=== PATIENT | male | born 1960 | race Caucasian/White ===

== ENCOUNTER 2018-05-06 15:46 | Emergency (ER) | payer BC ==
--- NOTE | 2018-05-06 16:57 | RAD ---
LUMBAR SPINE 3 VIEWS: Date 05/06/18 HISTORY: Back pain, starting last night while roping on the back of a horse. FINDINGS: Five lumbar-type vertebral bodies. Vertebral body height is maintained. No fracture. Disc space heigh ts are preserved. No spondylolisthesis or spondylolysis. IMPRESSION: Unremarkable 3 views lumbar spine. POS: [facility]
[2018-05-06] MEDS ORDERED: Bupivacaine 0.5% 10 ML VIAL ONE (19:10)
[2018-05-06] MEDS ORDERED: Ketorolac Tromethamine 30 MG/ML VIAL ONE (19:11)
[2018-05-06] MEDS ORDERED: Diazepam 5 MG TAB ONE (19:16)
== END 2018-05-06 19:40 | disposition home or self-care (01) ==
LOC: ERS 15:46
DX: M54.5 Low back pain (principal); I25.10 Atherosclerotic heart disease of native coronary artery without angina pectoris; E78.5 Hyperlipidemia, unspecified; I10 Essential (primary) hypertension; Z79.899 Other long term (current) drug therapy
CPT/HCPCS: 20552; 72100; 96372; J1885; J3490

== ENCOUNTER 2018-06-07 06:55 | Day surgery (SDC) | payer BC ==
[2018-06-04 11:09] VITALS: BMI 27.2
[2018-06-07 09:22] VITALS: BP 108/78; TEMP 96.9
--- NOTE | 2018-06-07 10:20 | CT ---
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 FINDINGS: Lumbar spine vertebral body heights and alignment are maintained. Disk space heights are preserved. L5-S1: There is no significant central canal or neural foraminal stenosis. L4-5: There is a broad-based disk bulge with a superimposed right subarticular protrusion. This imp inges the traversing right L4 nerve root and produces moderate to severe right subarticular zone and medial right foraminal stenosis. There is moderate central canal stenosis. Mild narrowing of the le ft neural foramen is present. L3-4: Broad-based disk bulge results in mild narrowing of the central canal. No high-grade foramina l stenosis. At L1-2 and L2-3 levels, there is no significant compromise of central canal or neural foraminal narr owing. Conus medullaris is normal in morphology terminating at the T12-L1 level. There is incidental note of cystic prominence in the left renal hilum which may relate to parapelvic cyst formation, incompletely assessed. Punctate calcification, nonobstructive, is seen within the ri ght renal collecting system. There is multilevel mild bilateral degenerative facet hypertrophy/osteophytosis. IMPRESSION: Disk bulge and right subarticular disk protrusion at L4-5, with associated impingement of the right L 5 nerve root, prominent right subarticular and medial right foraminal zone stenosis and moderate cent ral canal compromise. POS: [facility]
[2018-06-07] MEDS ORDERED: Iopamidol-M 300 61% 15 ML VIAL ONE (11:08)
--- NOTE | 2018-06-07 11:15 | CT ---
POST MYELOGRAM CERVICAL SPINE CT: HISTORY: Cervical radiculopathy. COMPARISON: 07/05/2015. FINDINGS: There is straightening of normal cervical lordosis. There is an anterior fusion plate with transvert ebral body screw at C5 and C6. No perihardware lucency. There is a prosthesis at the C5-C6 disk spa ce. There is preservation of vertebral body height. No fracture. There is 1.7 mm of anterolisthesi s of C2 upon C3, 2.2 mm anterolisthesis of C3 upon C4. Lateral masses of C1 and C2 articulate appropriately. Appropriate articulation of facets. Intact od ontoid process. Visualized soft tissue neck structures are unremarkable. C2-C3: No significant central canal stenosis or neural foraminal narrowing. C3-C4: Broad-based disk-osteophyte complex. Broad-based disk bulge. No significant central canal s tenosis. Mild right foraminal narrowing due to degenerative change of the uncovertebral joint. The left neural foramen is patent. C4-C5: There is a central disk bulge that deforms the thecal sac. There is mild central canal steno sis. Neural foramina are patent. C5-C6: There is a prosthesis. There is a small left paracentral osteophyte that does not cause any significant central canal stenosis. Neural foramina are patent bilaterally. C6-C7: No significant central canal stenosis or foraminal narrowing. C7-T1: No significant central canal stenosis or foraminal narrowing. IMPRESSION: 1. Interval fusion changes at C5-C6. There is no significant central canal stenosis or foraminal na rrowing at this level. 2. There is a central disk bulge at C4-C5. When compared to the previous examination, there is incr easing disk bulge. There is mild central canal stenosis. POS: [facility]
== END 2018-06-07 10:00 | disposition home or self-care (01) ==
LOC: RAD 06:55
PROVIDERS: ATTEND Neurological Surgery
DX: M48.02 Spinal stenosis, cervical region (principal); M50.121 Cervical disc disorder at C4-C5 level with radiculopathy; M51.26 Other intervertebral disc displacement, lumbar region; I25.10 Atherosclerotic heart disease of native coronary artery without angina pectoris; I42.9 Cardiomyopathy, unspecified; I10 Essential (primary) hypertension; E78.00 Pure hypercholesterolemia, unspecified; Z79.899 Other long term (current) drug therapy; Z88.0 Allergy status to penicillin
CPT/HCPCS: 62305; 72126; 72132

== ENCOUNTER 2020-08-02 10:17 | Outpatient (CLI) | payer BC | END 2020-08-02 10:18 | disposition home or self-care (01) | LOC: CTENTCT 10:17 | PROVIDERS: ATTEND Otolaryngology Plastic Surgery within the Head & Neck | DX: J34.2 Deviated nasal septum (principal) | CPT/HCPCS: 70486 ==

== ENCOUNTER 2020-08-24 07:36 | Outpatient (CLI) | payer BC ==
[2020-08-24 14:14] LABS: SARS-CoV-2 PCR by NAA Not Detected (NotDetected)
== END 2020-08-24 07:37 | disposition home or self-care (01) ==
LOC: LABBT 07:36
PROVIDERS: ATTEND Otolaryngology Plastic Surgery within the Head & Neck
DX: J34.2 Deviated nasal septum (principal); J34.89 Other specified disorders of nose and nasal sinuses; J32.9 Chronic sinusitis, unspecified; J30.9 Allergic rhinitis, unspecified; J34.3 Hypertrophy of nasal turbinates; R06.81 Apnea, not elsewhere classified
CPT/HCPCS: 87635; 93005; 93010; U0003; U0005

== ENCOUNTER 2020-08-29 06:55 | Day surgery (SDC) | payer BC ==
[2020-08-28 09:33] VITALS: BMI 25.1
[2020-08-29] MEDS ORDERED: AFRIN NASAL MIST 15 ML BOT ONE ×2 (07:07→08:49)
[2020-08-29] MEDS ORDERED: Acetaminophen 500 MG TAB ONE (07:39)
[2020-08-29] MEDS ORDERED: XYLOCAINE 2%-EPI 1:100,000 20 ML VIAL ONE (08:48)
[2020-08-29] MEDS ORDERED: EPINEPHrine 1 MG/ML AMP ONE (08:48)
[2020-08-29] MEDS ORDERED: Bacitracin Zinc Ointment 30 gm TUBE ONE (08:49)
[2020-08-29] MEDS ORDERED: Fentanyl 100 MCG/2 ML VIAL ONE (08:51)
[2020-08-29] MEDS ORDERED: Famotidine/PF 20 mg/2ml Vial ONE (08:52)
[2020-08-29] MEDS ORDERED: SUGAMMADEX SODIUM 200 MG/2 ML VIAL ONE (08:52)
[2020-08-29] MEDS ORDERED: Ondansetron PF 4 MG/2 ML Vial ONE (09:02)
[2020-08-29] MEDS ORDERED: Rocuronium Bromide 10 MG/ML (10ML VIAL) ONE (09:02)
[2020-08-29] MEDS ORDERED: Metoclopramide HCl 10 MG/2 ML VIAL ONE (09:02)
[2020-08-29] MEDS ORDERED: PHENYLEPHRINE-NS 100 MCG/ML 10 ML SYRINGE ONE (09:02)
[2020-08-29] MEDS ORDERED: Lidocaine 1% PF 5 ML VIAL ONE (09:02)
[2020-08-29] MEDS ORDERED: PROPOFOL 200 MG/20 ML VIAL ONE (09:02)
[2020-08-29] MEDS ORDERED: HYDROcodone/Acetaminophen 5/325 mg Tablet ONE (12:07)
--- NOTE | 2020-08-29 13:24 | OP ---
DATE OF PROCEDURE: 08/29/2020 PREOPERATIVE DIAGNOSES: 1. Chronic rhinosinusitis. 2. Bilateral nasal wall collapse. 3. Nasoseptal deviation. 4. Bilateral inferior turbinate hypertrophy. 5. Nasal obstruction. POSTOPERATIVE DIAGNOSES: 1. Chronic rhinosinusitis. 2. Bilateral nasal wall collapse. 3. Nasoseptal deviation. 4. Bilateral inferior turbinate hypertrophy. 5. Nasal obstruction. PROCEDURES PERFORMED: 1. Bilateral endoscopic sinus surgery, total ethmoidectomies. 2. Bilateral endoscopic sinus surgery, maxillary antrostomies. 3. Bilateral endoscopic sinus surgery, sphenoidotomies. 4. Bilateral endoscopic sinus surgery, frontal sinus exploration. 5. Bilateral repair of nasal wall collapse. 6. Nasal septoplasty. 7. Bilateral inferior turbinate submucosal resection. ESTIMATED BLOOD LOSS: 20 mL. COMPLICATIONS: None. ANESTHESIA: GETA. DESCRIPTION OF PROCEDURE: The patient was taken to the operating room and GETA was obtained by the anesthesia staff. Afrin pledgets were then placed into the nasal cavity bilaterally. The patient was placed into the beach chair position and was prepped and draped for standard nasal surgical procedures. Following this, the Afrin pledgets were removed and 1% lidocaine with 1:100,000 epinephrine was injected via a 27 gauge needle into the nasal septum, the inferior turbinate and the middle turbinate bilaterally. Following this, a [place] incision was made on the left nasal septum and mucoperichondrial flaps were elevated. A strong 2 cm caudal and dorsal cartilage strut was left intact as the deviated portions of the nasal cartilage and bone was removed. A 4-0 gut stitch was used to reapproximate the nasal mucoperichondrial flaps as well as close the [place] incision. Following this, the submucosal microdebrider was used to puncture and submucosally resect the anterior- inferior portions of the hypertrophic inferior turbinates. The inferior turbinates were laterally outfractured with a Maybrook elevator. Following this, the 0-degree endoscope was advanced into the nasal cavity. 1% lidocaine with 1:100,000 epinephrine was injected into the middle turbinates and lateral nasal wall bilaterally. Following this, the middle turbinates were identified bilaterally and were fractured medially with a Maybrook elevator. Following this, the uncinate process was visualized bilaterally and was anteriorly fractured using a ball-ended probe. Following this, the uncinate process was then removed using the 0-degree microdebrider blade, the 40-degree microdebrider blade, and the up-biting Blakesley forceps. Following this, the natural maxillary sinus ostia was identified using a ball-ended probe and the maxillary ostia was then widened bilaterally using the 40-degree microdebrider blade and straight Blakesley forceps bilaterally. Following this, the ethmoidal bulla was identified bilaterally and was punctured on its medial and inferior aspect using 0-degree microdebrider. The ethmoidal bulla was then removed along with the anterior ethmoidal cells using 0-degree microdebrider and up-biting Blakesley forceps bilaterally. Following this, the ground lamella was identified and was punctured into the posterior ethmoidal cells using the 0-degree microdebrider bilaterally. Working from posterior to anterior, the ethmoidal cells were opened using the 0-degree microdebrider blade, 40-degree microdebrider blade, and the up-biting Blakesley forceps. Following this, the anterior wall of the sphenoid sinus was identified with the 0-degree endoscope and a sphenoidotomy was created bilaterally using a Pandya tip suction. The sphenoidotomy was then widened in a medial and inferior direction using 0-degree microdebrider bilaterally. Following this, the 45-degree endoscope along with a 40-degree microdebrider blade was used to visualize the frontal recess and frontal sinus ostia. The frontal sinus ostia were then widened using a 40-degree microdebrider and up-biting Blakesley forceps bilaterally. Following this, a small incision was made in the lateral nasal wall and a subperiosteal pocket was created overlying the nasal bones bilaterally. A small pocket was made underlying the lower lateral cartilages and a graft implant was then injected in order to support the lower lateral cartilages bilaterally and repair the lateral wall collapse bilaterally. Following this, the nasal cavity was irrigated. A NasoPore packing was placed within the middle meatus. Puente splints were then placed and secured. The patient tolerated the procedure well. Job ID: [id number]
== END 2020-08-29 12:25 | disposition home or self-care (01) ==
LOC: SDC 06:55
PROVIDERS: ATTEND Otolaryngology Plastic Surgery within the Head & Neck
PROC: 09BL8ZZ Excision of Nasal Turbinate, Via Natural or Artificial Opening Endoscopic (ICD-10-PCS; principal; 2020-08-29)
PROC: 099R8ZZ Drainage of Left Maxillary Sinus, Via Natural or Artificial Opening Endoscopic (ICD-10-PCS; principal; 2020-08-29)
PROC: 099Q8ZZ Drainage of Right Maxillary Sinus, Via Natural or Artificial Opening Endoscopic (ICD-10-PCS; principal; 2020-08-29)
PROC: 09CW8ZZ Extirpation of Matter from Right Sphenoid Sinus, Via Natural or Artificial Opening Endoscopic (ICD-10-PCS; principal; 2020-08-29)
PROC: 09BV8ZZ Excision of Left Ethmoid Sinus, Via Natural or Artificial Opening Endoscopic (ICD-10-PCS; principal; 2020-08-29)
PROC: 09BU8ZZ Excision of Right Ethmoid Sinus, Via Natural or Artificial Opening Endoscopic (ICD-10-PCS; principal; 2020-08-29)
PROC: 09BM8ZZ Excision of Nasal Septum, Via Natural or Artificial Opening Endoscopic (ICD-10-PCS; principal; 2020-08-29)
PROC: 09BS8ZZ Excision of Right Frontal Sinus, Via Natural or Artificial Opening Endoscopic (ICD-10-PCS; principal; 2020-08-29)
PROC: 09BT8ZZ Excision of Left Frontal Sinus, Via Natural or Artificial Opening Endoscopic (ICD-10-PCS; principal; 2020-08-29)
PROC: 09NM8ZZ Release Nasal Septum, Via Natural or Artificial Opening Endoscopic (ICD-10-PCS; principal; 2020-08-29)
PROC: 09CX8ZZ Extirpation of Matter from Left Sphenoid Sinus, Via Natural or Artificial Opening Endoscopic (ICD-10-PCS; principal; 2020-08-29)
DX: J34.89 Other specified disorders of nose and nasal sinuses (principal); J32.9 Chronic sinusitis, unspecified; J34.2 Deviated nasal septum; J34.3 Hypertrophy of nasal turbinates; J30.9 Allergic rhinitis, unspecified; I25.10 Atherosclerotic heart disease of native coronary artery without angina pectoris; E78.00 Pure hypercholesterolemia, unspecified; H61.20 Impacted cerumen, unspecified ear; Z79.82 Long term (current) use of aspirin; Z79.899 Other long term (current) drug therapy; Z88.0 Allergy status to penicillin; Z88.8 Allergy status to other drugs, medicaments and biological substances
CPT/HCPCS: J0171; J2405; J2704; J2765; J3010; S0028

== ENCOUNTER 2020-12-27 10:20 | Outpatient (CLI) | payer BC | END 2020-12-27 10:21 | disposition home or self-care (01) | LOC: BICRAD 10:20 | PROVIDERS: ATTEND Family Medicine | DX: R06.00 Dyspnea, unspecified (principal); R91.8 Other nonspecific abnormal finding of lung field | CPT/HCPCS: 71046 ==

== ENCOUNTER 2021-08-01 15:00 | Emergency (ER) | payer BC ==
[2021-08-01 16:55] LABS: #Eosinphils 0.1 thou/uL (0.0-0.7); #Lymphocytes 0.9 thou/uL (1.20-3.40); #Monocytes 0.6 thou/uL (0.11-0.59); #Neutrophils 4.3 thou/uL (1.40-6.50); %Eosinophils 1.4 % (0.0-10.0); %Lymphocytes 14.9 % (21.0-51.0); %Monocytes 10.1 % (0.0-10.0); %Neutrophils 73.7 % (42.0-75.0); Hemoglobin 14.1 g/dL (14.0-18.0); Mean Corpuscular HGB CONC 33.8 g/dL (32.0-36.0); Mean Corpuscular Hemoglobin 30.5 pg (27.0-31.0); Mean Corpuscular Volume 90.2 fL (78.0-98.0); Mean Platelet Volume 6.5 fL (7.4-10.4); Platelet Count 243 thou/uL (130-400); RBC Distribution Width 11.6 % (11.5-14.5); Red Blood Cell (RBC) Count 4.62 mill/uL (4.70-6.10); White Blood Cell (WBC) Count 5.8 thou/uL (4.8-10.8)
[2021-08-01 17:17] LABS: ALT (SGPT) 42 U/L (8-55); AST (SGOT) 25 U/L (5-34); Albumin 3.9 g/dL (3.4-4.8); Alkaline Phosphatase 69 U/L (40-110); Anion Gap 12 mmol/L (10-20); BUN (Urea Nitrogen) 20 mg/dL (8.4-25.7); Bilirubin, Total 0.5 mg/dL (0.2-1.2); Calc. Creatinine Clearance 0 mL/min (70-130); Calcium 8.8 mg/dL (7.8-10.44); Carbon Dioxide 23 mmol/L (23-31); Chloride 104 mmol/L (98-107); Globulin 2.6 g/dL (2.4-3.5); Glucose 90 mg/dL (80-115); Potassium 4.2 mmol/L (3.5-5.1); Protein, Total 6.5 g/dL (5.8-8.1); Sodium 135 mmol/L (136-145)
== END 2021-08-01 18:18 | disposition home or self-care (01) ==
LOC: ERS 15:00
DX: U07.1 COVID-19 (principal); J12.82 Pneumonia due to coronavirus disease 2019; J84.10 Pulmonary fibrosis, unspecified; I10 Essential (primary) hypertension; I25.10 Atherosclerotic heart disease of native coronary artery without angina pectoris; E78.5 Hyperlipidemia, unspecified
CPT/HCPCS: 36415; 71045; 80053; 85025; 85652; 86140; 93005

== ENCOUNTER 2022-07-17 12:25 | Outpatient (CLI) | payer OTHER | END 2022-07-17 12:26 | disposition home or self-care (01) | LOC: MRI 12:25 | PROVIDERS: ATTEND Neurological Surgery | DX: M47.816 Spondylosis without myelopathy or radiculopathy, lumbar region (principal); M47.812 Spondylosis without myelopathy or radiculopathy, cervical region; M51.36 Other intervertebral disc degeneration, lumbar region; Z98.890 Other specified postprocedural states | CPT/HCPCS: 72148 ==